=== PATIENT | female | born 1995 ===

== ENCOUNTER → 2025-08-18 10:23 | Outpatient (CLI) | payer OTHER ==
[2025-08-18 11:17] LABS: BASO % 0.7 % (0.1-1.2); EOS # 0.05 (0.04-0.54); EOS % 0.7 % (0.7-7.0); LYMPH # 2.17 (1.18-3.74); LYMPH % 29.6 % (19.3-53.1); MEAN PLATELET VOLUME 10.70 fl (9.4-12.4); MONO # 0.35 (0.24-0.82); MONO % 4.8 % (4.7-12.5); NEUT # 4.69 (1.56-6.13); NEUT % 64.1 % (34.0-71.1); RED CELL DISTRIBUTION WIDTH 11.9 % (11.6-14.4)
[2025-08-18 11:37] LABS: URINE APPEARANCE Clear; URINE BILIRRUBIN Negative (NEGATIVE); URINE BLOOD Negative; URINE COLOR Yellow; URINE GLUCOSE Negative (NEGATIVE); URINE KETONE Negative (NEGATIVE); URINE LEUKOCYTE Negative; URINE NITRATE Negative; URINE PROTEIN Negative (NEGATIVE); URINE UROBILINOGEN 0.2 E.U./dl
[2025-08-18 11:38] LABS: URINE BACTERIA 110.3 uL (0.0-1933); URINE EPITHELIAL CELLS 12.7 uL (0.0-38.8); URINE RBC 2.9 uL (0.0-20.8); URINE WBC 5.8 uL (0.0-23.2)
[2025-08-18 11:48] LABS: GLUCOSE RANDOM 81.0 mg/dL (65-100); T4 FREE 1.08 NG/ML (0.76-1.46); TSH 0.693 uIU/mL (0.358-3.74)
[2025-08-18 12:02] LABS: URINE CAST 0.29 uL (0.0-1.40)
[2025-08-18 12:51] LABS: RH POSITIVE
== END | disposition home or self-care (01) ==
LOC: LAB 10:23
PROVIDERS: ATTEND Obstetrics & Gynecology
DX: E03.8 Other specified hypothyroidism (principal); N30.00 Acute cystitis without hematuria; R74.01 Elevation of levels of liver transaminase levels; Z34.81 Encounter for supervision of other normal pregnancy, first trimester